=== PATIENT | female | born 1955 | race Caucasian/White ===

== ENCOUNTER 2020-02-08 15:23 | Outpatient (CLI) | payer MEDICARE, OTHER, SELFPAY ==
--- NOTE | 2020-02-08 15:31 | CT_ITS ---
WS: [id number] CT CHEST TECHNIQUE: Contrast enhanced CT of the chest with coronal and sagittal reformatted images. CLINICAL INFORMATION: COUGH, PNEUMONIA COMPARISON: None. DLP: 903.[address] scans at [facility] use at least one of these dose optimization techniques: automat ed exposure control; mA and/or kV adjustment per patient size (includes targeted exams where dose is matched to clinical indication); or iterative reconstruction. FINDINGS: Mild chronic emphysematous changes. No acute pulmonary infiltrates. No focal pneumonia. No consolidat ion or pleural fluid. No suspicious pulmonary parenchymal opacities. No mediastinal or hilar lymphadenopathy. Normal caliber thoracic aorta. Proximal main pulmonary arter ies are normal. No axillary lymphadenopathy. Thyroid gland is normal. Adrenal glands are normal. Mild diffuse fatty infiltration the liver. Visualized upper abdominal aort a is normal. Normal GE junction. CT/CT chest w con* [id number] IMPRESSION: 1. Mild chronic emphysematous changes. No acute pulmonary infiltrates. 2. No mediastinal or hilar lymphadenopathy. 3. No other significant findings.
[2020-02-08 15:54] LABS: Blood Urea Nitrogen 8 mg/dL (8-23); Glomerular Filtration Rate 62.8 mL/min (90-130)
[2020-02-08] MEDS: iohexol 300 mg/mL 100 mL Btl IV (16:05)
== END 2020-02-08 15:24 | disposition home or self-care (01) ==
PROVIDERS: Family Provider Family Medicine; PCP Family Medicine; Visit Provider Family Medicine
DX: R05 Cough (principal); J18.9 Pneumonia, unspecified organism; J43.8 Other emphysema
CPT/HCPCS: 71260; 82565; 84520; Q9967

== ENCOUNTER → 2020-04-01 10:24 | Outpatient (BNVA) | payer MEDICARE, OTHER, SELFPAY | PROVIDERS: Family Provider Family Medicine; PCP Family Medicine; Visit Provider Surgery | DX: Z20.828 Contact with and (suspected) exposure to other viral communicable diseases (principal) | CPT/HCPCS: 87635 ==

== ENCOUNTER 2020-04-04 09:08 | Day surgery (SDC) | payer MEDICARE, OTHER, SELFPAY ==
[2020-04-02 12:07] VITALS: BMI 30.1
--- NOTE | 2020-04-04 09:13 | W.PM.OPSUD ---
Surgery/Procedure H&P Update DATE OF PROCEDURE: April 04, 2020 DATE H&P PERFORMED: 03/19/20 H&P UPDATE INFORMATION: I have reviewed H&P completed within last 30 days, I have examined patient prior to procedure and No changes to prior documentation PLANNED PROCEDURE: Operation Date: 04/04/20 10:00 Proposed Procedures p EGD 54557 K21.9(Not Applicable) - Mynor Espana MD
[2020-04-04 09:22] VITALS: BP 159/88; PULSE 87; RESP 20; TEMP 36.9; O2SAT 98
--- NOTE | 2020-04-04 09:31 | ECG_ITS ---
[facility] Test Date: 2020-04-04 Pat Name: Palak Mckeon Department: Room: Gender: Female Fmd Teacher: : 1955 Requested By: Dinah Rogers Order Number: [id number] Roque MD: Riley Burks M.D. Measurements Intervals [place] Rate: 70 P: 34 TX: 141 QRS: -29 QRSD: 91 T: 10 QT: 381 QTc: 412 Interpretive Statements SINUS RHYTHM WITH OCCASIONAL SUPRAVENTRICULAR PREMATURE COMPLEXES BORDERLINE LEFT AXIS DEVIATION [QRS AXIS < -20] LOW QRS VOLTAGE IN PRECORDIAL LEADS [QRS DEFLECTION < 1.0 mV IN CHEST LEADS] INCOMPLETE RIGHT BUNDLE BRANCH BLOCK [90+ ms QRS DURATION, TERMINAL R IN V1/V2, 40+ ms S IN I/aVL/V4/V5/V6] No previous ECG available for comparison Electronically Signed On 04-04-2020 19:28:55 CDT by Riley Burks M.D. [id number]
[2020-04-04] MEDS: sodium chloride 0.9% 1,000 ML 30 ML IV (09:44)
--- NOTE | 2020-04-04 09:49 | ANES.PREANE2 ---
Pre-Anesthetic Assessment Pre-Anesthetic Assessment: Height/Weight: Height 1.6 m Weight 77.111 kg Temp Pulse Resp BP Pulse Ox 98.4 F 87 20 H 159/88 98 04/04/20 09:22 04/04/20 09:22 04/04/20 09:22 04/04/20 09:22 04/04/20 09:22 Preop Diagnosis: GERD Proposed Procedure: Operation Date: 04/04/20 10:00 Proposed Procedures p EGD 42478 K21.9(Not Applicable) - Mynor Espana MD Familial anesthetic complications: none Last intake: Intake Last Liquid Date 04/03/20 Last Liquid Time 22:00 Last Solid Date 04/03/20 Last Solid Time 18:00 Social: Social History: No alcohol and No tobacco Exam: Pre-Anes Outpt Exam: alert, oriented x 3, clear to auscultation bilaterally and regular rate & rhythm Airway: Cervical ROM: WNL MP: 2 Dentition: Full Pulmonary: Pulmonary: SOB Comments: patient has had some episodes where she feel she looses her breath randomly, not associated with exertion CV/HEM: CV/HEM: Palp Comments: patient wore holter monitor 2 years ago and was told she just had PACs/PVCs GI: GI: GERD Metabolic: Metabolic: Hyperlipidemia Anesthetic Plan: ASA status: 2 Anesthesia: MAC Risk of > 500 ml blood loss (7ml/kg in children): No Meds/Allergies Current Medications: Current Medications Generic Name Dose Route Start Last Admin Trade Name Freq PRN Reason Stop Dose Admin Sodium Chloride 1,000 mls @ 30 ml s/hr 04/04/20 09:30 04/04/20 09:44 Sodium Chloride 0.9% IV 04/05/20 09:29 30 mls/hr .Q24H PATRICIA Administration PFSH Anesthesia PFSH: Medical History (Updated 03/20/20 @ 16:18 by Mynor Espana MD) Depression Fibromyalgia GERD (gastroesophageal reflux disease) Hyperlipidemia Surgical History History of laparoscopic cholecystectomy (~1987) Family History Denies family history of Anesthesia complication Bleeding disorder Social History Smoking and tobacco status: never smoked Data Anesthesia Cardiac Studies: No Data to Display
[2020-04-04 11:09] VITALS: BP 121/69; PULSE 87; RESP 16; TEMP 36.1; O2SAT 93
--- NOTE | 2020-04-04 11:14 | ANE.PACU2 ---
Inpatient post-anesthesia follow up: Airway intact: Yes Vital signs: Temperature 97.0 F Pulse Rate 87 Respiratory Rate 16 Blood Pressure 121/69 Pulse Oximetry 93 Oxygen Delivery Me thod Room Air Oxygen Flow Rate Fraction of Inspir ed Oxygen Hydration adequate: Yes Nausea and vomiting: No Pain level: 1
[2020-04-04 11:17] VITALS: BP 122/72; PULSE 68; RESP 18; O2SAT 94
== END 2020-04-04 11:30 | disposition home or self-care (01) ==
PROVIDERS: PCP Family Medicine; Visit Provider Surgery
PROC: 0DJ08ZZ Inspection of Upper Intestinal Tract, Via Natural or Artificial Opening Endoscopic (ICD-10-PCS; CPT 43235; principal; 2020-04-04 10:00)
DX: K21.9 Gastro-esophageal reflux disease without esophagitis (principal); K29.70 Gastritis, unspecified, without bleeding; K22.2 Esophageal obstruction
CPT/HCPCS: 12345; 43239; 88305; 93005; J7030

== ENCOUNTER 2021-02-04 15:09 | Outpatient (CLI) | payer MEDICARE, OTHER, SELFPAY ==
[2021-02-04 15:30] VITALS: BP 123/73; PULSE 79; RESP 18; TEMP 37.3; O2SAT 93
[2021-02-04 16:05] VITALS: BP 119/77; PULSE 74; RESP 19; O2SAT 95
[2021-02-04 16:16] VITALS: BP 117/67; PULSE 79; RESP 18; O2SAT 94
[2021-02-04 17:04] VITALS: BP 117/70; PULSE 78; O2SAT 92
== END 2021-02-04 17:09 | disposition home or self-care (01) ==
LOC: OPS 15:26
PROVIDERS: PCP Family Medicine; Visit Provider Family Medicine
DX: U07.1 COVID-19 (principal)
CPT/HCPCS: 96365

== ENCOUNTER 2021-03-13 06:33 | Outpatient (CLI) | payer MEDICARE, OTHER, SELFPAY ==
--- NOTE | 2021-03-13 07:02 | USCV_ITS ---
Palak Mckeon Age: 65 Gender: F : 1955 Exam Date: 03/13/2021 07:24 Ordering Phys: Angelo Florez MD Technologist: Monalisa Mendoza Exam Location: [facility] [place] Indication: CHEST PAIN BP: 151 / 70 HR: 79 Rhythm: Sinus Technical Quality: Technically difficult study MEASUREMENTS (Male / Female) Normal Values 2D ECHO LV Diastolic Diameter PLAX 4.2 cm 4.2 - 5.9 / 3.9 - 5.3 cm LV Systolic Diameter PLAX 2.4 cm IVS Diastolic Thickness 1.0 cm 0.6 - 1.0 / 0.6 - 0.9 cm IVS Systolic Thickness 1.3 cm LVPW Diastolic Thickness 0.9 cm 0.6 - 1.0 / 0.6 - 0.9 cm LVPW Systolic Thickness 1.3 cm LVOT Diameter 2.0 cm LV Ejection Fraction 2D Teich 73.4 % LA Diameter 2.5 cm Aorta at Sinotubular Diameter 2.4 cm M-MODE Aortic Annulus Diameter 2.6 cm LA Ao Ratio MM 1.1 DOPPLER AV Peak Velocity 171.0 cm/s LVOT Peak Velocity 113.0 cm/s AV Area Cont Eq vti 2.2 cm squared AV Area Cont Eq pk 2.1 cm squared MV Area PHT 3.5 cm squared Mitral E to A Ratio 0.8 MV E' Velocity 51.5 cm/s Mitral E to MV E' Ratio 12.2 Mitral E to LV E' Lateral Ratio 12.3 Mitral E to LV E' Septal Ratio 12.2 TR Peak Velocity 299.0 cm/s TR Peak Gradient 35.8 mmHg TV Peak E Velocity 54.0 cm/s Right Atrial Pressure 3.0 mmHg Pulmonary Artery Systolic Pressu 38.8 mmHg PV Peak Velocity 85.3 cm/s RV Acceleration Time 0.2 s RV Ejection Time 0.3 s RV AcT/ET 0.5 FINDINGS Left Ventricle Normal left ventricular size. LV systolic function is normal with EF of 55-60%. No regional wall motion abnormalities. Normal left ventricular wall thickness. Grade 1 diastolic dysfunction Right Ventricle The right ventricle is normal in size and function. Right Atrium The right atrium is normal in size. Left Atrium The left atrium is normal in size. Mitral Valve Structurally normal mitral valve without significant stenosis or prolapse. There is mild mitral regurgitation. Aortic Valve Structurally normal aortic valve without significant sclerosis or stenosis. There is no aortic regurgitation. Tricuspid Valve Structurally normal tricuspid valve without significant stenosis or regurgitation. Insufficient TR jet to calculate RVSP Pulmonic Valve Structurally normal pulmonic valve without significant stenosis. There is no pulmonic regurgitation. Pericardium Normal pericardium without effusion. Aorta Normal ascending aorta dimension. CONCLUSIONS LV systolic function is normal with EF of 55-60% Grade 1 diastolic dysfunction Mild mitral regurgitation No comparison studies are available Johan Simmons MD (Electronically Signed) Final Date: 13 March 2021 14:47 S
== END 2021-03-13 06:34 | disposition home or self-care (01) ==
LOC: US 06:36
PROVIDERS: PCP Family Medicine; Visit Provider Family Medicine
DX: R06.00 Dyspnea, unspecified (principal); I47.1 Supraventricular tachycardia; R07.9 Chest pain, unspecified; I34.0 Nonrheumatic mitral (valve) insufficiency
CPT/HCPCS: 93306

== ENCOUNTER → 2021-09-23 10:35 | Outpatient (BNVA) | payer MEDICARE, OTHER, SELFPAY | PROVIDERS: PCP Family Medicine; Visit Provider Internal Medicine Cardiovascular Disease | DX: I47.1 Supraventricular tachycardia (principal); I49.8 Other specified cardiac arrhythmias; I49.1 Atrial premature depolarization | CPT/HCPCS: 93270 ==

== ENCOUNTER 2022-06-10 13:57 | Outpatient (CLI) | payer MEDICARE, OTHER, SELFPAY ==
--- NOTE | 2022-06-10 14:13 | XR_ITS ---
WS: [id number] EXAMINATION: XR lumbar spine 2-3V* [id number] L-SPINE : 3 views REASON FOR EXAM: Acute back pain COMPARISON: None available. ORDER DATE: 06/10/2022 2:14 PM FINDINGS: The lumbar vertebral bodies and the disc spaces are normal in width with minimal spondylosis. In the lumbar vertebra, there is no evidence of compression deformities or spondylolisthesis. XR/XR lumbar spine 2-3V* [id number] IMPRESSION: UNREMARKABLE LUMBAR SPINE STUDY
--- NOTE | 2022-06-10 14:13 | XR_ITS ---
WS: [id number] EXAMINATION: XR sacroiliac jts m 3V [id number] REASON FOR EXAM: Acute back pain COMPARISON: None available. ORDER DATE: 06/10/2022 2:14 PM FINDINGS: There is no sign of any acute osseous or articular abnormality. No sign of SI joint sclerosis There a re no specific soft tissue abnormalities. XR/XR sacroiliac jts m 3V [id number] IMPRESSION: Normal appearance of the SI joints.
== END 2022-06-10 13:58 | disposition home or self-care (01) ==
LOC: LAB 14:08
PROVIDERS: PCP Family Medicine; Visit Provider Family Medicine
DX: M54.50 Low back pain, unspecified (principal)
CPT/HCPCS: 72100; 72202

== ENCOUNTER 2022-09-24 09:15 | Outpatient (CLI) | payer MEDICARE, OTHER, SELFPAY ==
--- NOTE | 2022-09-24 09:30 | MR_ITS ---
WS: [id number] MRI HEAD WITH CONTRAST TECHNIQUE: Sagittal T1, T2 axial, T2 axial FLAIR, axial susceptibility weighted imaging, axial diffus ion weighted images, and coronal T2 images were obtained. Pre and post-T1 axial and post T1 coronal i mages. ADC and FSPGR images. CLINICAL INFORMATION: persistent worsening headaches COMPARISON: None. FINDINGS: No evidence of restricted diffusion to suggest acute ischemia. Ventricular system and basal cisterns are patent. Mild small vessel changes. Mild parenchymal volume loss. Normal posterior fossa. Normal v ascular flow voids at the skull base. No extra-axial fluid collections. No evidence of mass or mass e ffect. Paranasal sinuses are well aerated. Mastoid air cells well aerated. No hemosiderin on the susceptibl y weighted images. Normal optic chiasm and pituitary infundibulum. Normal cavernous sinuses and Mecke l's cave. No hemosiderin on susceptibly weighted images. No abnormal gadolinium enhancement. Normal visualized dural venous sinuses. MR/MR head wo/w con [id number] IMPRESSION: 1. No evidence of restricted diffusion to suggest acute ischemia. 2. Mild small vessel changes with mild parenchymal volume loss. 3. No abnormal gadolinium enhancement. 4. Paranasal sinuses and mastoid air cells well aerated. 5. No hemosiderin on susceptibly weighted images.
[2022-09-24] MEDS: gadobenate dimeglumine 20 mL vial IV (10:43)
== END 2022-09-24 09:16 | disposition home or self-care (01) ==
PROVIDERS: PCP Family Medicine; Visit Provider Family Medicine
DX: R51.9 Headache, unspecified (principal)
CPT/HCPCS: 70553; A9577

== ENCOUNTER → 2022-11-04 13:00 | Outpatient (BNVA) | payer MEDICARE, OTHER, SELFPAY | PROVIDERS: PCP Family Medicine; Referring Provider Family Medicine; Visit Provider Psychiatry & Neurology Neurology | DX: R51.9 Headache, unspecified (principal); G89.29 Other chronic pain; R53.1 Weakness; E55.9 Vitamin D deficiency, unspecified | CPT/HCPCS: 36415; 80053; 82306; 82746; 83921; 84155; 84165; 84439; 84443; 84481; 85025; 85651; 86140; 86160; 86162; 86235; 86255; 86334; 86376; 86431; 86592; 99204 ==

== ENCOUNTER → 2022-11-11 13:02 | Outpatient (BNVA) | payer MEDICARE, OTHER, SELFPAY | PROVIDERS: PCP Family Medicine; Visit Provider Psychiatry & Neurology Neurology | DX: R56.9 Unspecified convulsions (principal); G24.9 Dystonia, unspecified | CPT/HCPCS: 95812; 95813 ==

== ENCOUNTER 2022-11-20 11:58 | Outpatient (CLI) | payer MEDICARE, OTHER, SELFPAY ==
--- NOTE | 2022-11-20 12:15 | USCV_ITS ---
Palak Mckeon Age: 67 Gender: F : 1955 Exam Date: 11/20/2022 12:17 Ordering Phys: Kyle Mendez MD Technologist: Felecia Perez Exam Location: [facility] [place] Indication: CAROTID ARTERY SYNDROME HEMISPHERICAL Risk Factors: Unknown Previous Vascular Surgery: None Right Brachial BP: / Left Brachial BP: / Right Left Velocity (cm/s) Spectral Plaque Velocity (cm/s) Spectral Plaque Syst/Diast Broadening Syst/Diast Broadening 79.40/ 23.20 Prox CCA 124.80/ 34.80 88.20/ 24.30 Mid CCA 64.40 / 18.40 81.60/ 27.60 Distal CCA 58.30 / 21.50 59.80/ 17.70 Prox ICA 61.40 / 26.60 85.80/ 34.30 Mid ICA 100.20/ 45.00 94.30/ 30.00 Distal ICA 97.10 / 37.80 94.80 ECA 85.90 1.07 ICA/CCA 0.80 Antegrade Vertebral Antegrade 40.90/ 12.80 cm/s 49.70/ 16.30 cm/s Tri Subclavian Tri 73.60 110.6 0 FINDINGS Comparison: none available. No significant elevation of systolic or diastolic velocities. Waveforms are normal. Minimal carotid plaque. Antegrade vertebral arteries. CONCLUSIONS Bilateral ICA stenosis less than 50%. Minimal carotid atherosclerosis. Dr. Hollie Solo DO (Electronically Signed) Final Date: 20 Nov 2022 13:37 S
== END 2022-11-20 11:59 | disposition home or self-care (01) ==
LOC: RAD 12:03
PROVIDERS: PCP Family Medicine; Visit Provider Psychiatry & Neurology Neurology
DX: G45.1 Carotid artery syndrome (hemispheric) (principal); R51.9 Headache, unspecified; G89.29 Other chronic pain
CPT/HCPCS: 93880; 99204

== ENCOUNTER → 2022-12-01 14:17 | Outpatient (BNVA) | payer MEDICARE, OTHER, SELFPAY | PROVIDERS: PCP Family Medicine; Visit Provider Surgery | DX: R13.10 Dysphagia, unspecified (principal); K21.9 Gastro-esophageal reflux disease without esophagitis | CPT/HCPCS: 99213 ==

== ENCOUNTER → 2022-12-02 14:10 | Outpatient (BNVA) | payer MEDICARE, OTHER, SELFPAY | PROVIDERS: PCP Family Medicine; Visit Provider Nurse Practitioner Family | DX: L71.0 Perioral dermatitis (principal); L57.8 Other skin changes due to chronic exposure to nonionizing radiation; L85.3 Xerosis cutis; L81.4 Other melanin hyperpigmentation; D22.5 Melanocytic nevi of trunk; Z71.89 Other specified counseling; L71.8 Other rosacea | CPT/HCPCS: 99214 ==

== ENCOUNTER → 2022-12-16 13:37 | Outpatient (BNVA) | payer MEDICARE, OTHER, SELFPAY | PROVIDERS: PCP Family Medicine; Visit Provider Psychiatry & Neurology Neurology | DX: M79.2 Neuralgia and neuritis, unspecified (principal); F32.A Depression, unspecified; R25.8 Other abnormal involuntary movements; R13.10 Dysphagia, unspecified; E55.9 Vitamin D deficiency, unspecified; I49.8 Other specified cardiac arrhythmias; Z86.19 Personal history of other infectious and parasitic diseases; Z94.7 Corneal transplant status; H57.13 Ocular pain, bilateral | CPT/HCPCS: 99212 ==

== ENCOUNTER 2022-12-30 07:27 | Day surgery (SDC) | payer MEDICARE, OTHER, SELFPAY ==
[2022-12-28 08:58] VITALS: BMI 23.0
--- NOTE | 2022-12-30 07:45 | P.ANESASSM_ITS ---
Pre-Anesthetic Assessment Height/Weight: Height 1.83 m Weight 77.111 kg Preop Diagnosis: Dysphagia Operation Date: 12/30/22 08:30 Proposed Procedures p EGD Dilation 13966 K21.9 R13.10(Not Applicable) - Kennedy Meza DO Familial anesthetic complications: None Was Beta Golden taken within 24 hours: Yes (This am) Was Clonidine taken within 24 hours: N/A Social No alcohol and No tobacco Exam alert, oriented x 3, clear to auscultation bilaterally and regular rate & rhythm Airway Submandibular: within normal limits Cervical ROM: within normal limits Mallampati: Class II Dentition: full Comments: Comments: Bottom right tooth History/ROS No significant history except as noted and No significant complaints Pulmonary None reported CV/HEM Arrythmia (PACs), Coronary Artery Disease and Hypertension CONCLUSIONS ?LV systolic function is normal with EF of 55-60% ?Grade 1 diastolic dysfunction ?Mild mitral regurgitation ?No comparison studies are available None reported Hepatic None reported GI Gastroesophageal Reflux Disease (Controlled with meds ) Dysphagia Metabolic None reported Musc/skel Fibromyalgia, Osteoarthritis/DJD and Weakness Dyskinesia Neuropsych Anxiety, Depression, Headache, Neuropathy and Seizure (Patient states she gets the shakes ) Anesthetic Plan ASA status: 3 Anesthesia: Anesthesia Evaluation, General and MAC Risk of > 500 ml blood loss (7ml/kg in children): No Medications/Allergies Home Medications Medication Instructions Recorded Confirmed Last Taken Type tretinoin 0.025 % topical gel 1 applic topical ONCE #45 grams 08/18/22 12/30/22 12/28/22 Rx aspirin 81 mg tablet,delayed 81 mg PO DAILY 11/02/22 12/28/22 12/29/22 History release (Adult Low Dose Aspirin) cholecalciferol (vitamin D3) 1,250 50,000 unit PO .weekly #10 caps 11/09/22 12/28/22 12/26/22 Rx mcg (50,000 unit) capsule pantoprazole 40 mg tablet,delayed 40 mg PO BID 6 weeks #84 tabs 12/01/22 12/28/22 12/28/22 Rx release (Protonix) propranolol 20 mg tablet 30 mg PO BID #60 tabs 12/09/22 12/28/22 12/30/22 06:00 Rx gabapentin 300 mg tablet,extended 300 mg PO BEDTIME #90 tabs 12/16/22 12/28/22 12/29/22 Rx release 24 hr gabapentin 100 mg capsule 100 mg PO BID #90 caps 12/21/22 12/28/22 12/29/22 Rx lovastatin 40 mg tablet 40 mg PO DAILY 12/28/22 12/28/22 12/29/22 History metronidazole 0.75 % topical gel 1 applic topical BID PRN Rash 12/28/22 12/30/22 12/28/22 History oxymetazoline 1 % topical cream 1 applic topical DAILY PRN Rash 12/28/22 12/30/22 12/28/22 History (Rhofade) Allergies Allergy/AdvReac Type Severity Reaction Status Date / Time Penicillins Allergy Severe Unconscious Verified 12/28/22 08:53 cephalexin [From Keflex] Allergy Unknown Unknown Verified 12/28/22 08:53 Sulfa (Sulfonamide Allergy Unknown Unknown Verified 12/28/22 08:53 Antibiotics) [facility] Anesthesia Medical History Depression Fibromyalgia GERD (gastroesophageal reflux disease) Hyperlipidemia PAC (premature atrial contraction) Vitamin D deficiency Surgical History H/O esophagogastroduodenoscopy (04/04/20) gastritis, bile reflux History of laparoscopic cholecystectomy (~1987) Family History Denies family history of Anesthesia complication Bleeding disorder Social History Smoking and tobacco status: never smoked Data Anesthesia Cardiac Studies: Echocardiogram 03/13/21 Cardiac Event Monitor 04/28/22
[2022-12-30 07:47] VITALS: BP 138/78; PULSE 62; RESP 18; TEMP 37.1; O2SAT 98
[2022-12-30] MEDS: sodium chloride 0.9% 1,000 ML 30 ML IV (07:54)
--- NOTE | 2022-12-30 08:06 | W.PM.OPSUD ---
Surgery/Procedure H&P Update DATE OF PROCEDURE: December 30, 2022 DATE H&P PERFORMED: 12/01/22 H&P UPDATE INFORMATION: I have reviewed H&P completed within last 30 days, I have examined patient prior to procedure and No changes to prior documentation PREOP DIAGNOSIS: Dysphagia PLANNED PROCEDURE: Operation Date: 12/30/22 08:30 Proposed Procedures p EGD Dilation 47048 K21.9 R13.10(Not Applicable) - Kennedy Meza DO
--- NOTE | 2022-12-30 08:08 | ECG_ITS ---
[facility] Test Date: 2022-12-30 Pat Name: Palak Mckeon Department: Room: Gender: Female Incoming Freight Clerk: : 1955 Requested By: Dinah Rogers Order Number: [id number] Roque MD: Arielle Robbins M.D. Measurements Intervals [place] Rate: 59 P: 32 IA: 150 QRS: -24 QRSD: 89 T: -1 QT: 406 QTc: 403 Interpretive Statements SINUS BRADYCARDIA WITH OCCASIONAL SUPRAVENTRICULAR PREMATURE COMPLEXES BORDERLINE LEFT AXIS DEVIATION [QRS AXIS < -20] Compared to ECG 04/04/2020 09:52:54 Sinus rhythm no longer present Incomplete right bundle-branch block no longer present Electronically Signed On 12-31-2022 12:29:22 CDT by Arielle Robbins M.D. [id number]
[2022-12-30 08:27] VITALS: BP 110/43; PULSE 67; RESP 16; TEMP 36.1; O2SAT 93
[2022-12-30 08:37] VITALS: BP 117/52; PULSE 61; RESP 16; O2SAT 94
--- NOTE | 2022-12-30 15:50 | ANE.PACU2 ---
Inpatient post-anesthesia follow up: Airway intact: Yes Vital signs: Temperature 97.0 F Pulse Rate 61 Respiratory Rate 16 Blood Pressure 117/52 Pulse Oximetry 94 Oxygen Delivery Me thod Room Air Oxygen Flow Rate Fraction of Inspir ed Oxygen Hydration adequate: Yes Nausea and vomiting: No Pain level: 1 Mental status: Baseline
== END 2022-12-30 09:16 | disposition home or self-care (01) ==
PROVIDERS: Family Provider Psychiatry & Neurology Neurology; PCP Family Medicine; Visit Provider Surgery
DX: K21.9 Gastro-esophageal reflux disease without esophagitis (principal); R13.10 Dysphagia, unspecified; I25.10 Atherosclerotic heart disease of native coronary artery without angina pectoris; I10 Essential (primary) hypertension; Z79.82 Long term (current) use of aspirin; E55.9 Vitamin D deficiency, unspecified; R00.1 Bradycardia, unspecified; K20.90 Esophagitis, unspecified without bleeding; I85.00 Esophageal varices without bleeding; K29.70 Gastritis, unspecified, without bleeding
CPT/HCPCS: 43239; 88305; 93005; J2704; J7030

== ENCOUNTER 2023-01-18 09:28 | Outpatient (CLI) | payer MEDICARE, OTHER, SELFPAY ==
--- NOTE | 2023-01-18 10:00 | FL_ITS ---
WS: [id number] Exam: FL barium swallow modifd [id number] Date/Time of Exam: 01/18/2023 9:56 AM Reason For Exam: Fluoroscopy time: 2min [id number] minutes # of spot films: Modified barium swallow was performed in conjunction with the speech therapy service. Swallowing function at the level of the oropharynx was normal. The patient tolerated all consistencie s of barium mixture foodstuffs without aspiration or penetration. The patient ingested a barium table t without difficulty or complication. FL/FL barium swallow modifd [id number] IMPRESSION: 1. No aspiration or penetration into the laryngeal inlet was noted. A separate report of findings and recommendations will follow from the speech t herapy service.
== END 2023-01-18 09:29 | disposition home or self-care (01) ==
LOC: RAD 09:32
PROVIDERS: PCP Family Medicine; Visit Provider Surgery
DX: R13.10 Dysphagia, unspecified (principal)
CPT/HCPCS: 74230; 92611

== ENCOUNTER → 2023-02-24 14:08 | Outpatient (BNVA) | payer MEDICARE, OTHER, SELFPAY | PROVIDERS: PCP Family Medicine; Visit Provider Psychiatry & Neurology Neurology | DX: M79.2 Neuralgia and neuritis, unspecified (principal); R25.9 Unspecified abnormal involuntary movements; E55.9 Vitamin D deficiency, unspecified; Z09 Encounter for follow-up examination after completed treatment for conditions other than malignant neoplasm; R13.10 Dysphagia, unspecified; R51.9 Headache, unspecified | CPT/HCPCS: 99212 ==

== ENCOUNTER → 2023-04-22 08:18 | Outpatient (BNVA) | payer MEDICARE, OTHER, SELFPAY | PROVIDERS: PCP Family Medicine; Visit Provider Nurse Practitioner Family | DX: L71.8 Other rosacea (principal); L57.8 Other skin changes due to chronic exposure to nonionizing radiation; D18.01 Hemangioma of skin and subcutaneous tissue; L81.4 Other melanin hyperpigmentation | CPT/HCPCS: 99214 ==

== ENCOUNTER → 2023-06-22 11:07 | Outpatient (BNVA) | payer MEDICARE, OTHER, SELFPAY | PROVIDERS: PCP Family Medicine; Visit Provider Nurse Practitioner Family | DX: L71.8 Other rosacea (principal); L21.8 Other seborrheic dermatitis | CPT/HCPCS: 99214 ==

== ENCOUNTER → 2024-03-15 10:39 | Outpatient (BNVA) | payer MEDICARE, OTHER, SELFPAY | PROVIDERS: PCP Family Medicine; Visit Provider Nurse Practitioner Family | DX: L71.8 Other rosacea (principal); L21.8 Other seborrheic dermatitis; L81.4 Other melanin hyperpigmentation; D22.5 Melanocytic nevi of trunk | CPT/HCPCS: 99214 ==

== ENCOUNTER 2024-06-12 15:59 | Outpatient (CLI) | payer MEDICARE, OTHER, SELFPAY ==
--- NOTE | 2024-06-12 16:04 | XRR_ITS ---
PROCEDURE INFORMATION: Exam: XR Abdomen Exam date and time: 06/12/2024 4:12 PM Age: 68 years old Clinical indication: Generalized; Prior surgery; Surgery date: 6+ months; Surgery type: Gb; Patient HX: Abdominal pain for 1-2 months, diarrhea; Additional info: Abd pain TECHNIQUE: Imaging protocol: Radiologic exam of the abdomen. Views: Frontal supine view of the abdomen. 1 View. COMPARISON: CR XR lumbar spine 2-3V* [id number] 06/10/2022 2:15 PM FINDINGS: Gastrointestinal tract: Normal. No bowel dilation. Bones/joints: Unremarkable. XR/XR KUB [id number] IMPRESSION: No acute findings.
== END 2024-06-12 16:00 | disposition home or self-care (01) ==
LOC: RAD 16:01
PROVIDERS: PCP Family Medicine; Visit Provider Family Medicine
DX: R10.9 Unspecified abdominal pain (principal); F32.A Depression, unspecified; I49.1 Atrial premature depolarization; R53.1 Weakness; E78.5 Hyperlipidemia, unspecified
CPT/HCPCS: 74018; 80053; 80061; 82607; 83880; 84443; 85025

== ENCOUNTER → 2024-08-31 10:35 | Outpatient (BNVA) | payer MEDICARE, OTHER, SELFPAY | PROVIDERS: PCP Family Medicine; Visit Provider Family Medicine | DX: Z13.6 Encounter for screening for cardiovascular disorders (principal); R07.9 Chest pain, unspecified | CPT/HCPCS: 80053; 80061; 82947; 83036; 83880; 84484; 85025; 85379 ==

== ENCOUNTER 2024-09-01 10:02 | Outpatient (CLI) | payer MEDICARE, OTHER, SELFPAY ==
--- NOTE | 2024-09-01 10:05 | XR_ITS ---
WS: [id number] Chest 2 views, 09/01/2024 Clinical Data: dyspnea Comparison: Two-view chest, 04/18/2019 Findings: No nodules, masses or effusions are seen. The heart is normal. The pulmonary vascularity is not increased. No pneumonia or pneumothorax is seen. The aortic arch shows mild tortuosity. XR/XR chest 2V* [id number] Impression: Atherosclerosis.
== END 2024-09-01 10:03 | disposition home or self-care (01) ==
LOC: RAD 10:04
PROVIDERS: PCP Family Medicine; Visit Provider Family Medicine
DX: R07.9 Chest pain, unspecified (principal); I70.90 Unspecified atherosclerosis; R93.89 Abnormal findings on diagnostic imaging of other specified body structures
CPT/HCPCS: 71046